=== PATIENT | female | born 1955 | race African-American/Black ===

== ENCOUNTER → 2016-04-17 21:35 | Emergency (ER) | payer SELFPAY | END | disposition left against medical advice (07) | LOC: BURERS 21:35 | DX: Z53.21 Procedure and treatment not carried out due to patient leaving prior to being seen by health care provider (principal) ==

== ENCOUNTER 2018-02-06 22:07 | Emergency (ER) | payer OTHER, SELFPAY ==
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
== END 2018-02-06 23:20 | disposition home or self-care (01) ==
LOC: BURERS 22:07
DX: S09.90XA Unspecified injury of head, initial encounter (principal); I11.0 Hypertensive heart disease with heart failure; I50.9 Heart failure, unspecified; E03.9 Hypothyroidism, unspecified; Z79.899 Other long term (current) drug therapy; V43.52XA Car driver injured in collision with other type car in traffic accident, initial encounter
CPT/HCPCS: 70450; 71045; 72125; G0390

== ENCOUNTER 2021-05-11 16:42 | Emergency (ER) | payer SELFPAY ==
[2021-05-11 17:09] LABS: #Basophils 0.1 thou/uL (0.0-0.2); #Eosinphils 0.4 thou/uL (0.0-0.7); #Lymphocytes 2.7 thou/uL (1.20-3.40); #Monocytes 0.5 thou/uL (0.11-0.59); #Neutrophils 2.8 thou/uL (1.40-6.50); %Basophils 1.4 % (0.0-1.0); %Eosinophils 5.8 % (0.0-10.0); %Lymphocytes 42.7 % (21.0-51.0); %Neutrophils 43.1 % (42.0-75.0); Hemoglobin 14.6 g/dL (12.0-16.0); Mean Corpuscular HGB CONC 34.3 g/dL (32.0-36.0); Mean Corpuscular Volume 99.1 fL (78.0-98.0); Mean Platelet Volume 9.8 fL (7.4-10.4); Platelet Count 220 thou/uL (130-400); RBC Distribution Width 12.6 % (11.5-14.5); Red Blood Cell (RBC) Count 4.29 mill/uL (4.20-5.40); White Blood Cell (WBC) Count 6.4 thou/uL (4.8-10.8)
[2021-05-11] MEDS ORDERED: Aspirin Chewable 81 MG TAB ONE (17:15)
[2021-05-11 17:21] LABS: ALT (SGPT) 15 U/L (8-55); AST (SGOT) 22 U/L (5-34); Alkaline Phosphatase 77 U/L (40-110); Anion Gap 11 mmol/L (10-20); BUN (Urea Nitrogen) 14 mg/dL (9.8-20.1); Bilirubin, Total 1.1 mg/dL (0.2-1.2); Calc. Creatinine Clearance 0 mL/min (70-130); Carbon Dioxide 27 mmol/L (23-31); Chloride 105 mmol/L (98-107); Globulin 3.4 g/dL (2.4-3.5); Glucose 123 mg/dL (80-115); Potassium 3.2 mmol/L (3.5-5.1); Protein, Total 7.4 g/dL (5.8-8.1); Sodium 140 mmol/L (136-145)
[2021-05-11 17:41] LABS: CKMB 5.5 ng/mL (0-6.6)
[2021-05-11] MEDS ORDERED: Enoxaparin Sodium 100 MG/ML SYRINGE ONE (17:53)
[2021-05-11] MEDS ORDERED: Sulfameth/Trimethoprim DS 800-160mg TAB ONE (18:58)
== END 2021-05-11 18:56 | disposition short-term general hospital (02) ==
LOC: BURERS 16:42
DX: I24.9 Acute ischemic heart disease, unspecified (principal); I49.3 Ventricular premature depolarization; I11.0 Hypertensive heart disease with heart failure; I50.9 Heart failure, unspecified; E03.9 Hypothyroidism, unspecified; Z79.899 Other long term (current) drug therapy
CPT/HCPCS: 71045; 80053; 82553; 83880; 84484; 85025; 93005; 96372; J1650